=== PATIENT | male | born 1950 | race Caucasian/White ===

== ENCOUNTER 2018-07-17 12:49 | Day surgery (SDC) | payer MEDICARE, SELFPAY ==
--- NOTE | 2018-07-17 | PATH_ITS ---
[facility] Accession Number: [id number] . 01 Material submitted: . PART A: ASCENDING COLON POLYP PART B: RECTAL POLYP . 02 Diagnosis: A. Ascending Colon Polyps: Tubular adenoma x2. Additional step sections examined. . B. Rectal Polyp: Tubular adenoma. MRV/07/22/2018 . 02 Electronically signed: . Adolfo Stuart MD, PhD, Pathologist NPI- [id number] . 01 Gross description: . Received two formalin-filled containers both labeled with the patient's name. . A. In a container labeled ascending colon polyps are two 0.3 cm portions of tissue. Entirely submitted in cassette A. B. In a container labeled rectal polyp, the specimen consists of a 0.2 cm portion of tissue. Entirely submitted in cassette B. ([facility]:[id number]) /[facility] . 02 Pathologist provided ICD-10: D12.2, D12.8 . 02 CPT . 612189, 530254 Specimen Comment: A duplicate report has been generated due to demographic updates. Performed at: 01 [facility] [address] [place] [address], [place], [place] [id number] MD Joseph Flores MD Phone: [phone] Performed at: [address] [facility] [address] [place], [place] [id number] MD Peter Cortez MD Phone: [phone]
[2018-07-17 13:20] VITALS: BP 133/72; PULSE 66; RESP 15; TEMP 36.5; O2SAT 93; BMI 35.8
[2018-07-17] MEDS: SODIUM CHLORIDE 0.9% 1,000 ML 70 ML IV (13:27)
--- NOTE | 2018-07-17 13:43 | PM.HP.1 ---
History of Present Illness Date Patient Seen: 07/17/18 Chief complaint: [id number] Narrative: 68-year-old male who is here for polyp surveillance. He had a prior colonoscopy done around 8 years ago and was told he had polyps and surveillance interval was 5-10 years. I do not have a copy of that colonoscopy report. Patient otherwise has no active GI symptoms and no alarm symptoms. Patient History Family & Social History Social History: household members spouse Tobacco & Substance use: Smoking Status Never smoker Meds Home Medications Medication Instructions Recorded Confirmed Type simvastatin 40 mg PO HS #90 tab 01/31/18 07/17/18 Rx lisinopril-hydrochlorothiazide 1 tab PO QDAY #90 tab 05/20/18 07/17/18 Rx loratadine 10 mg capsule 10 mg PO DAILY PRN 06/27/18 07/17/18 History Allergies Allergy/AdvReac Type Severity Reaction Status Date / Time No Known Drug Allergies Allergy Verified 07/17/18 13:17 Review of Systems Review of Systems All systems reviewed & are unremarkable except as noted in HPI and below Exam Vital Signs (past 8 hours): - 07/17/18 13:20 Temperature 97.7 F Pulse Rate 66 Respiratory Rate 15 Blood Pressure 133/72 Pulse Oximetry 93 Oxygen Delivery Method Room Air Narrative Exam Narrative: General: Patient is obese, not in apparent distress Cardiovascular: Regular rate and rhythm, no murmurs, rubs, or gallops; no evidence of edema; no palpable abdominal aortic aneurysm Gastrointestinal: Normoactive bowel sounds, soft, nontender, nondistended, no rebound tenderness, no hepatosplenomegaly, no evidence of hernia Assessment & Plan Plan: Assessment/Plan Narrative: 68-year-old male who is here for colon polyp surveillance. Prior colonoscopy results not available to me but told he had a surveillance interval of 5-10 years. No family history of colon cancer. No active GI symptoms Regarding the procedure(s), the risks and potential complications, benefits, and alternatives (including not doing the procedure) were discussed with the patient. The risks include but are not limited to bleeding, infection, perforation which may require surgical intervention, missed lesions, and adverse reactions to sedative medicines. After a question and answer period, the patient agreed to proceed with the procedure(s) and gives informed consent.
--- NOTE | 2018-07-17 14:09 | PM.OP.ENDO ---
Operative Date/Time/Diagnoses Date of procedure: 07/17/18 Procedure Notes Procedure in detail: Surgeon: Jason Roberts MD Procedure: Colonoscopy with polypectomy Preoperative diagnosis: Colon polyp surveillance; last colonoscopy 8 years ago Postoperative diagnosis: 3 colon polyps status post polypectomy, sigmoid diverticulosis, grade 2 internal hemorrhoids Medications: Conscious sedation using 4 mg IV of Midazolam and 100 mcg IV of Fentanyl Preanesthesia Assessment An H and P was performed/updated and the Px?s ASA class is 2. The procedure was discussed in detail with the patient. The potential risks and complications including infection, bleeding, missed lesions, perforation, need for surgery in case of perforation, prolonged hospital stay, and were explained. A brief question and answer period was allotted and once all questions were answered, informed consent was obtained. The patient was brought back to the procedure room and placed on standard monitoring. The patient?s vital signs were monitored continuously throughout the entire procedure. Prior to starting, a timeout was performed to confirm the patient?s identity, allergies, medications, and procedure. Procedure in detail The patient was placed in left lateral decubitus position and once adequate sedation was obtained a SUHA was performed. The digital rectal examination did not reveal any palpable lesions. The tip of the colonoscope was placed in the anal canal and advanced without difficulty all the way to the cecum which was identified by the appendiceal orifice and the ileocecal valve. The terminal ileum was intubated to a distance of 5 cm from the ileocecal valve. The mucosa appeared normal. The colonoscope was then brought back to the cecum and careful examination of all smith of the colon was performed with irrigation of any residual stool. In the ascending colon there was note of 2 polyps measuring 2-3 mm. These were removed by means of cold Jumbo biopsy forceps. Resection and retrieval were complete with minimal bleeding There was note of multiple medium-size diverticula in the sigmoid colon In the rectum there was note of a 3 mm semi pedunculated polyp. This was removed by me with cold Jumbo biopsy forceps. Resection and retrieval were complete with minimal bleeding. Retroflexion was performed in the rectum which revealed grade 2 internal hemorrhoids. The patient tolerated the procedure well and will be brought back to the recovery area to be discharged once criteria are met. The prep was judged to be good/excellent and adequate to identify polyps less than 5 mm. The withdrawal time was 8.5 min. The total physician intraservice time was 17 min. Complications There were no complications and estimated blood loss was minimal. Recommendations: Resume previous diet Continue outPx medications Follow up pathology results Repeat colonoscopy in 3 or 5 years depending on pathology results An emergency contact number was given to the patient for any complications related to the procedure
[2018-07-17] MEDS: fentaNYL 250 MCG/5 ML INJ IV (14:31)
[2018-07-17] MEDS: MIDAZOLAM 5 MG/5 ML VIAL IV (14:32)
--- NOTE | 2018-07-17 14:33 | PM.DS.1 ---
History of Present Illness Chief complaint: [id number] Narrative: 68-year-old male who is here for polyp surveillance. He had a prior colonoscopy done around 8 years ago and was told he had polyps and surveillance interval was 5-10 years. I do not have a copy of that colonoscopy report. Patient otherwise has no active GI symptoms and no alarm symptoms. Discharge Providers Primary care physician: Thanh Ya MD Discharge provider: Jason Roberts MD Exam Vital Signs (past 8 hours): - 07/17/18 13:20 Temperature 97.7 F Pulse Rate 66 Respiratory Rate 15 Blood Pressure 133/72 Pulse Oximetry 93 Oxygen Delivery Method Room Air Narrative Exam Narrative: General: Patient is obese, not in apparent distress Cardiovascular: Regular rate and rhythm, no murmurs, rubs, or gallops; no evidence of edema; no palpable abdominal aortic aneurysm Gastrointestinal: Normoactive bowel sounds, soft, nontender, nondistended, no rebound tenderness, no hepatosplenomegaly, no evidence of hernia Discharge Plan Discharge Plan Patient Disposition: Home Discharge Med Rec/Prescriptions Prescriptions: Continue loratadine [Claritin Liqui-Gel] 10 mg capsule 10 mg PO DAILY PRN (Reason: Allergic Symptoms) RF: 0 simvastatin 40 MG tablet 40 mg PO HS Qty: 90 RF: 3 lisinopril-hydrochlorothiazide 10-12.5 mg tablet 1 tab PO QDAY Qty: 90 RF: 1 Discharge Orders: Discharge (Order); Ordered 07/17/18 Ordered By: Jason Roberts Provider Discharge Instructions Diet: Diet as Tolerated Visit Report/Discharge Packet Stand Alone Forms: Surgery Discharge Discharge Data Primary Care Provider: Thanh Ya Attending Provider: Jason Roberts
[2018-07-17 14:43] VITALS: BP 105/69; PULSE 58; RESP 16; TEMP 36.2; O2SAT 96
== END 2018-07-17 15:01 | disposition home or self-care (01) ==
PROVIDERS: PCP Family Medicine; Visit Provider Internal Medicine Gastroenterology
PROC: 0DJD8ZZ Inspection of Lower Intestinal Tract, Via Natural or Artificial Opening Endoscopic (ICD-10-PCS; CPT 45378; principal; 2018-07-17 14:00)
DX: Z86.010 Personal history of colon polyps (principal); K57.30 Diverticulosis of large intestine without perforation or abscess without bleeding; K64.1 Second degree hemorrhoids; D12.2 Benign neoplasm of ascending colon; D12.8 Benign neoplasm of rectum
CPT/HCPCS: 45380; 88305; J2250; J3010

== ENCOUNTER → 2019-06-09 10:19 | Outpatient (CLI) | payer MEDICARE, SELFPAY ==
[2019-06-09 11:08] LABS: Alanine Aminotransferase 45 IU/L (21-72); Albumin 4.2 g/dL (3.5-5.0); Albumin Globulin Ratio 1.4 (1.0-2.8); Alkaline Phosphatase 65 U/L (38-126); Aspartate Aminotransferase 25 IU/L (17-59); BUN Creatinine Ratio 22.5 (6-22); Blood Urea Nitrogen 18 mg/dL (9-20); Calcium 9.8 mg/dL (8.4-10.2); Carbon Dioxide 26 mmol/L (22-32); Chloride 103 mmol/L (98-107); Cholesterol 142 mg/dL (140-199); Estimated Glomerular Filt Rate > 60.0 mL/min (>60); Glucose 192 mg/dL (80-110); HDL Cholesterol 34 mg/dL (40-60); HEMOLYSIS < 15 (0-50); LDL Cholesterol Calculated 78 mg/dL (<100); Potassium 4.5 mmol/L (3.4-5.1); Sodium 140 mmol/L (137-145); Total Protein 7.2 g/dL (6.3-8.2); Triglycerides 150 mg/dL (35-150)
[2019-06-09 11:12] LABS: Hemoglobin A1C% w Est Avg Glu 9.5 % (4.0-6.0)
[2019-06-09 11:23] LABS: Vitamin D 25 Hydroxy (D3) 28.7 ng/mL (30.0-100.0)
== END ==
PROVIDERS: PCP Student in an Organized Health Care Education/Training Program; Visit Provider Student in an Organized Health Care Education/Training Program
DX: E11.9 Type 2 diabetes mellitus without complications (principal); E55.9 Vitamin D deficiency, unspecified; E78.00 Pure hypercholesterolemia, unspecified; Z79.899 Other long term (current) drug therapy; Z12.5 Encounter for screening for malignant neoplasm of prostate; I10 Essential (primary) hypertension; M19.011 Primary osteoarthritis, right shoulder
CPT/HCPCS: 36415; 80053; 80061; 82306; 83036; G0103

== ENCOUNTER → 2019-06-17 14:13 | Outpatient (CLI) | payer MEDICARE, SELFPAY ==
[2019-06-17 15:11] LABS: Creatinine Urine Random 184.5 mg/dL
[2019-06-17 15:15] LABS: Microalbumi Creatinin Ratio Ur 4.8 ug/mg CR (<30); Microalbumin Urine Random 0.9 mg/dL (0-1.6)
== END ==
PROVIDERS: PCP Student in an Organized Health Care Education/Training Program; Visit Provider Student in an Organized Health Care Education/Training Program
DX: E11.9 Type 2 diabetes mellitus without complications (principal)
CPT/HCPCS: 82043; 82570

== ENCOUNTER → 2019-09-08 06:58 | Outpatient (CLI) | payer MEDICARE, SELFPAY ==
[2019-09-08 07:54] LABS: Hemoglobin A1C% w Est Avg Glu 6.1 % (4.0-6.0)
== END ==
PROVIDERS: PCP Student in an Organized Health Care Education/Training Program; Visit Provider Student in an Organized Health Care Education/Training Program
DX: E11.9 Type 2 diabetes mellitus without complications (principal)
CPT/HCPCS: 36415; 83036

== ENCOUNTER → 2019-12-29 08:42 | Outpatient (CLI) | payer MEDICARE, SELFPAY ==
[2019-12-29 09:49] LABS: Hemoglobin A1C% w Est Avg Glu 5.7 % (4.0-6.0)
== END ==
PROVIDERS: PCP Student in an Organized Health Care Education/Training Program; Referring Provider Student in an Organized Health Care Education/Training Program; Visit Provider Student in an Organized Health Care Education/Training Program
DX: E11.9 Type 2 diabetes mellitus without complications (principal)
CPT/HCPCS: 36415; 83036

== ENCOUNTER → 2020-04-13 10:15 | Outpatient (CLI) | payer MEDICARE, SELFPAY ==
--- NOTE | 2020-04-13 10:17 | DI.US.S_ITS ---
PROCEDURE: US SCROTUM INDICATIONS: RIGHT SCROTAL/INGUINAL PAIN TECHNIQUE: Real-time scanning was performed of the scrotum and testicles, with image documentation. Color and pulse Doppler interrogation was performed of both testicles. COMPARISON: None. FINDINGS: Right: Testicle is normal in size at 3.9 x 2.2 x 3.8 cm, and homogenous in echotexture. Microcalcifications present. Epididymis is normal in overall size and morphology. Subcentimeter epididymal cysts. Moderate hydrocele. No varicoceles. Overlying scrotal skin is normal in thickness. No inguinal hernia identified. Left: Testicle is normal in size at 3.8 x 2.3 x 3.9 cm, and homogeneous in echotexture. Microcalcifications present. Epididymis is normal in overall size and morphology. No hydrocele or varicoceles. Overlying scrotal skin is normal in thickness. Doppler: Color and pulse Doppler demonstrate normal and symmetric arterial flow in both testicles. IMPRESSION: 1. Multiple bilateral microcalcifications seen otherwise the testicles are normal. If there is no history of underlying malignancy or predisposing factors which would increase the patient's risk for development of neoplasm, recommend patient education on self-examination; otherwise no followup ultrasound is necessary. 2. Moderate right hydrocele. 3. Subcentimeter right epididymal cysts. Dictated by: Gio BADILLO Interpreted: Sonido Negrete MD on 04/13/2020 at 12:16 Approved by: Sonido Negrete M.D. on 04/13/2020 at 13:08
== END ==
PROVIDERS: PCP Student in an Organized Health Care Education/Training Program; Referring Provider Student in an Organized Health Care Education/Training Program; Visit Provider Student in an Organized Health Care Education/Training Program
DX: N50.82 Scrotal pain (principal); N50.3 Cyst of epididymis
CPT/HCPCS: 76870

== ENCOUNTER → 2020-05-03 09:32 | Outpatient (CLI) | payer MEDICARE, SELFPAY ==
--- NOTE | 2020-05-03 09:33 | DI.CT.S_ITS ---
PROCEDURE: CT ABDOMEN PELVIS WO CON INDICATIONS: pain r groin r/o hernia recurrence (had vasectomy RIH repair TECHNIQUE: After the administration of oral contrast, 5 mm thick sections acquired from the diaphragms to the symphysis. 5 mm coronal and sagittal reformats were performed. For radiation dose reduction, the following was used: automated exposure control, adjustment of mA and/or kV according to patient size. COMPARISON: [facility], , SCROTUM, 04/13/2020, 10:33. FINDINGS: Image quality: Excellent. ABDOMEN: Lung bases: Lung bases are clear. Heart size is normal. Solid organs: Liver is normal in size. Gallbladder appears normal . Pancreas is normal in size. Spleen is normal in size. No adrenal nodules. Both kidneys are normal in size, without hydronephrosis or nephrolithiasis. Peritoneum and bowel: Bowel loops demonstrate normal wall thickness and caliber. No free fluid or air. Nodes and vessels: No retroperitoneal or mesenteric adenopathy by size criteria. Aorta and inferior vena cava are normal in size. Miscellaneous: No ventral hernias. PELVIS: Genitourinary: Bladder wall thickness is normal. Miscellaneous: No inguinal hernias or adenopathy. A normal appendix is seen at the right lower quadrant without adjacent inflammation. A single punctate calcification is present in that area, separate from the appendix. More inferiorly at the right inguinal canal small bowel extends to slightly anterior to the upper margin of the inguinal canal, and then fat prominence is present more inferiorly within the upper 3rd of the inguinal canal. A combination of omental and small-bowel herniation into this area appears to have occurred. Bones: No suspicious bony lesions. No vertebral body compression fractures. IMPRESSION: A urinary tract stone is not seen. A normal appendix is found. Note is made of a slight degree of herniation of small bowel into the upper margin of the right inguinal canal and there also is prominence of fat within the upper 3rd of the inguinal canal on the right to the degree that some portion of the omentum appears likely to have herniated into the inguinal canal also. There is no CT evidence of incarceration or strangulation associated. Dictated by: Bhanu Streeter M.D. on 05/03/2020 at 12:53 Approved by: Bhanu Streeter M.D. on 05/03/2020 at 12:58
== END ==
PROVIDERS: PCP Student in an Organized Health Care Education/Training Program; Referring Provider Specialist; Visit Provider Specialist
DX: K40.90 Unilateral inguinal hernia, without obstruction or gangrene, not specified as recurrent (principal); R10.31 Right lower quadrant pain; G89.29 Other chronic pain; Z98.890 Other specified postprocedural states; Z87.19 Personal history of other diseases of the digestive system
CPT/HCPCS: 74176

== ENCOUNTER → 2020-07-08 10:48 | Outpatient (CLI) | payer MEDICARE, SELFPAY ==
[2020-07-08 12:00] LABS: Hemoglobin A1C% w Est Avg Glu 5.9 % (4.0-6.0)
== END ==
PROVIDERS: PCP Student in an Organized Health Care Education/Training Program; Referring Provider Student in an Organized Health Care Education/Training Program; Visit Provider Student in an Organized Health Care Education/Training Program
DX: E11.9 Type 2 diabetes mellitus without complications (principal)
CPT/HCPCS: 36415; 83036

== ENCOUNTER → 2020-11-16 09:49 | Outpatient (CLI) | payer MEDICARE, SELFPAY ==
[2020-11-16] MEDS: COVID-19 VACC #1, MRNA(MOD) 100 MCG/0.5 ML VIAL IM (09:54)
== END ==
PROVIDERS: PCP Student in an Organized Health Care Education/Training Program; Visit Provider Internal Medicine
DX: Z23 Encounter for immunization (principal)
CPT/HCPCS: 0011A; 91301

== ENCOUNTER → 2020-12-14 09:56 | Outpatient (CLI) | payer MEDICARE, SELFPAY ==
[2020-12-14] MEDS: COVID-19 VACC #2, MRNA(MOD) 100 MCG/0.5 ML VIAL IM (10:12)
== END ==
PROVIDERS: PCP Student in an Organized Health Care Education/Training Program; Visit Provider Internal Medicine
DX: Z23 Encounter for immunization (principal)
CPT/HCPCS: 0012A; 91301

== ENCOUNTER → 2021-10-11 07:10 | Outpatient (CLI) | payer MEDICARE, SELFPAY ==
[2021-10-11 08:28] LABS: Hemoglobin A1C% w Est Avg Glu 5.9 % (4.0-6.0)
[2021-10-11 08:51] LABS: Creatinine Urine Random 261.6 mg/dL
[2021-10-11 08:56] LABS: Microalbumi Creatinin Ratio Ur 9.1 ug/mg CR (<30); Microalbumin Urine Random 2.4 mg/dL (0-1.6)
[2021-10-11 09:04] LABS: BUN Creatinine Ratio 14.4 (6-22); Blood Urea Nitrogen 13 mg/dL (9-20); Calcium 9.9 mg/dL (8.4-10.2); Carbon Dioxide 27 mmol/L (22-32); Chloride 107 mmol/L (98-107); Cholesterol 133 mg/dL (140-199); Estimated Glomerular Filt Rate > 60.0 mL/min (>60); Glucose 99 mg/dL (80-110); HDL Cholesterol 45 mg/dL (40-60); HEMOLYSIS < 15 (0-50); LDL Cholesterol Calculated 72 mg/dL (<100); Potassium 4.3 mmol/L (3.4-5.1); Sodium 141 mmol/L (137-145); Triglycerides 78 mg/dL (35-150)
== END ==
PROVIDERS: PCP Student in an Organized Health Care Education/Training Program; Referring Provider Student in an Organized Health Care Education/Training Program; Visit Provider Student in an Organized Health Care Education/Training Program
DX: E11.69 Type 2 diabetes mellitus with other specified complication (principal); E78.5 Hyperlipidemia, unspecified; E55.9 Vitamin D deficiency, unspecified; I10 Essential (primary) hypertension; E11.9 Type 2 diabetes mellitus without complications
CPT/HCPCS: 36415; 80048; 80061; 82043; 82306; 82570; 83036

== ENCOUNTER → 2022-12-13 08:39 | Outpatient (CLI) | payer MEDICARE, SELFPAY ==
[2022-12-13 09:25] LABS: Hemoglobin A1C% w Est Avg Glu 6.3 % (4.0-6.0)
[2022-12-13 09:40] LABS: BUN Creatinine Ratio 16.3 (6-22); Blood Urea Nitrogen 14 mg/dL (9-20); Calcium 9.2 mg/dL (8.4-10.2); Carbon Dioxide 27 mmol/L (22-32); Chloride 103 mmol/L (98-107); Cholesterol 153 mg/dL (140-199); Estimated Glomerular Filt Rate > 60 mL/min (>60); Glucose 107 mg/dL (80-110); HDL Cholesterol 44 mg/dL (40-60); HEMOLYSIS < 15 (0-50); LDL Cholesterol Calculated 90 mg/dL (<100); Potassium 4.3 mmol/L (3.4-5.1); Sodium 141 mmol/L (137-145); Triglycerides 96 mg/dL (35-150)
[2022-12-13 16:02] LABS: Microalbumin Urine Random 1.1 mg/dL (0-1.6)
[2022-12-13 16:22] LABS: Creatinine Urine Random 149.8 mg/dL; Microalbumi Creatinin Ratio Ur 7.3 ug/mg CR (<30)
[2022-12-14 17:08] LABS: Hep C Virus Ab w/Reflex Quant NEGATIVE s/c (NEGATIVE)
== END ==
PROVIDERS: PCP Student in an Organized Health Care Education/Training Program; Referring Provider Student in an Organized Health Care Education/Training Program; Visit Provider Student in an Organized Health Care Education/Training Program
DX: E11.9 Type 2 diabetes mellitus without complications (principal); E11.69 Type 2 diabetes mellitus with other specified complication; I10 Essential (primary) hypertension; E78.5 Hyperlipidemia, unspecified; Z11.59 Encounter for screening for other viral diseases
CPT/HCPCS: 36415; 80048; 80061; 82043; 82570; 83036; 86803

== ENCOUNTER → 2023-06-19 10:24 | Outpatient (CLI) | payer MEDICARE, SELFPAY ==
[2023-06-19 12:51] LABS: Hemoglobin A1C% w Est Avg Glu 5.9 % (4.0-6.0)
[2023-06-19 13:11] LABS: Aspartate Aminotransferase 24 IU/L (17-59); BUN Creatinine Ratio 15.6 (6-22); Blood Urea Nitrogen 12 mg/dL (9-20); Calcium 9.2 mg/dL (8.4-10.2); Carbon Dioxide 27 mmol/L (22-32); Chloride 105 mmol/L (98-107); Estimated Glomerular Filt Rate > 60 mL/min (>60); Glucose 100 mg/dL (80-110); HEMOLYSIS < 15 (0-50); Potassium 4.6 mmol/L (3.4-5.1); Sodium 139 mmol/L (137-145)
[2023-06-19 13:33] LABS: Prostate Specific Antigen 2.29 ng/mL (0.10-4.00)
== END ==
PROVIDERS: PCP Internal Medicine; Referring Provider Internal Medicine; Visit Provider Internal Medicine
DX: E11.69 Type 2 diabetes mellitus with other specified complication (principal); N40.1 Benign prostatic hyperplasia with lower urinary tract symptoms; E78.5 Hyperlipidemia, unspecified; I10 Essential (primary) hypertension; N13.8 Other obstructive and reflux uropathy
CPT/HCPCS: 36415; 80048; 83036; 84153; 84450

== ENCOUNTER 2023-07-05 06:43 | Day surgery (SDC) | payer MEDICARE, SELFPAY ==
[2023-07-05] MEDS: LACTATED RINGERS 1,000 ML 42 ML IV (07:03)
[2023-07-05 07:09] VITALS: BP 169/69; PULSE 50; RESP 14; TEMP 36.3; O2SAT 96; BMI 29.4
--- NOTE | 2023-07-05 07:47 | PM.HP.1 ---
History of Present Illness History of Present Illness Date Patient Seen: 07/05/23 Time Patient Seen: 07:56 Chief complaint: Colonoscopy Narrative: Sj is a 73-year-old man who had his last colonoscopy about 5 years ago and 3 tubular adenomas were removed. He has not had any other polyps removed on prior colonoscopies. He has no known family history of colon cancer. 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 household members: spouse Smoking Status: Never smoker Meds Home Medications and Allergies Home Medications Medication Instructions Recorded Confirmed Type aspirin 81 mg tablet,delayed 81 mg PO DAILY 06/17/19 07/05/23 History release lisinopril 20 mg tablet 20 mg PO DAILY #90 tabs 01/09/23 07/05/23 Rx simvastatin 40 mg tablet 40 mg PO HS #90 tabs 01/09/23 07/05/23 Rx Allergies Allergy/AdvReac Type Severity Reaction Status Date / Time No Known Drug Allergies Allergy Verified 07/05/23 07:06 Exam Vital Signs (past 8 hours): - 07/05/23 07:09 Temperature 97.4 F L Pulse Rate 50 L Respiratory Rate 14 Blood Pressure 169/69 H Pulse Oximetry 96 Oxygen Delivery Method Room Air Oxygen Delivery Method Room Air Const General: healthy appearing Assessment & Plan Assessment and plan (1) History of colonic polyps: Status: Acute Plan We reviewed the risks and benefits of colonoscopy due to history of colon polyps and he would like to proceed.
[2023-07-05 08:24] VITALS: BP 115/64; PULSE 57; RESP 21; TEMP 36.8; O2SAT 97
--- NOTE | 2023-07-05 08:26 | PM.OP.COLON ---
Operative Date/Time/Diagnoses Date of procedure: 07/05/23 Time of procedure: 08:27 Pre-op diagnosis: History of colon polyps Post-op diagnosis: same Procedure & Clinicians Study performed: Colonoscopy Same procedure as scheduled: Yes Surgeon: Manuel Martell Procedure Notes Procedure in detail: Surgeon: Manuel Martell MD Anesthesia: Kamila Cuevas CRNA Procedure: The patient was brought to the endoscopy suite, placed in left lateral decubitus position. The patient was connected to monitoring devices. A time-out was performed. Sedation was administered. Once the patient was adequately sedated, a digital rectal exam was performed and was normal. The scope was then inserted and advanced to the cecum where the appendiceal orifice was identified and photographed. The scope was then slowly withdrawn over greater than 6 minutes. The mucosa was thoroughly inspected. No polyps were seen. A few scattered diverticula were seen in the sigmoid colon. The scope was retroflexed in the rectum. There were internal hemorrhoids but no other abnormalities were seen The scope was straightened and removed. The patient was awakened and brought to recovery. Scope withdrawal time: 8 minutes Sedation time: 15 minutes EBL: 0 Findings: Few scattered diverticula in the sigmoid colon and mild internal hemorrhoids Post-procedure Disposition: PACU
[2023-07-05 08:27] VITALS: BP 121/71; PULSE 44; RESP 11; O2SAT 98
[2023-07-05 08:35] VITALS: BP 118/62; PULSE 47; RESP 13; TEMP 36.8; O2SAT 98
== END 2023-07-05 08:45 | disposition home or self-care (01) ==
PROVIDERS: PCP Internal Medicine; Referring Provider Surgery; Visit Provider Surgery
PROC: 0DJD8ZZ Inspection of Lower Intestinal Tract, Via Natural or Artificial Opening Endoscopic (ICD-10-PCS; CPT 45378; principal; 2023-07-05 07:45)
DX: Z12.11 Encounter for screening for malignant neoplasm of colon (principal); K57.30 Diverticulosis of large intestine without perforation or abscess without bleeding; K64.8 Other hemorrhoids
CPT/HCPCS: G0105; J2704

== ENCOUNTER → 2024-05-15 16:47 | Outpatient (CLI) | payer MEDICARE, SELFPAY ==
[2024-05-15 17:22] LABS: Aspartate Aminotransferase 27 IU/L (17-59); Blood Urea Nitrogen 15 mg/dL (9-20); Calcium 9.2 mg/dL (8.4-10.2); Carbon Dioxide 24 mmol/L (22-32); Chloride 108 mmol/L (98-107); Cholesterol 153 mg/dL (140-199); Estimated Glomerular Filt Rate > 60 mL/min (>60); Glucose 99 mg/dL (80-110); HDL Cholesterol 48 mg/dL (40-60); HEMOLYSIS < 15 (0-50); LDL Cholesterol Calculated 84 mg/dL (<100); Potassium 4.3 mmol/L (3.4-5.1); Sodium 140 mmol/L (137-145); Triglycerides 105 mg/dL (35-150)
[2024-05-15 17:24] LABS: Hemoglobin A1C% w Est Avg Glu 6.3 % (4.0-6.0)
[2024-05-15 17:39] LABS: Creatinine Urine Random 164.02 mg/dL
== END ==
PROVIDERS: PCP Internal Medicine; Referring Provider Internal Medicine; Visit Provider Internal Medicine
DX: E11.69 Type 2 diabetes mellitus with other specified complication (principal); E78.5 Hyperlipidemia, unspecified
CPT/HCPCS: 36415; 80048; 80061; 82043; 82570; 83036; 84450

== ENCOUNTER 2024-06-09 13:36 | Emergency (ER) | payer MEDICARE, SELFPAY ==
[2024-06-09 13:39] VITALS: BP 169/77; PULSE 66; RESP 16; TEMP 36.9; O2SAT 98; BMI 31.4
[2024-06-09 14:17] LABS: Strep Grp A by PCR Rapid Negative (Negative)
[2024-06-09 15:27] LABS: Influenza A - CEPHEID Flu A NEGATIVE (NEGATIVE); Influenza B - CEPHEID Flu B NEGATIVE (NEGATIVE); Respiratory Syncytial Virus Negative (Negative)
[2024-06-09 15:30] LABS: COVID-19 CEPHEID 4-PLEX PCR Negative (Negative)
[2024-06-09 19:51] VITALS: BP 170/77; PULSE 63; RESP 16; TEMP 37.2; O2SAT 97
[2024-06-09] MEDS: dexAMETHasone 4 MG TABLET 12 MG PO (20:38)
--- NOTE | 2024-06-09 23:59 | ED.FEVER ---
HPI - Fever General Chief Complaint: Fever Stated Complaint: T-3 Fever, diff swallowing, jaw pain Time Seen by Provider: 06/09/24 20:06 Source: patient Mode of arrival: Ambulatory History of Present Illness HPI Narrative: 74-year-old man with a history of hypertension presenting with a sore throat in 3 days of fever. Sore throat is primarily along the right side and notices swelling of his uvula. Has not had a cough nausea or vomiting. No shortness a breath. History of a fractured tooth but that is not hurting at present Related Data Home Medications Medication Instructions Recorded Confirmed aspirin 81 mg tablet,delayed 81 mg PO DAILY 06/17/19 05/15/24 release Previous Rx's Medication Instructions Recorded simvastatin 40 mg tablet 40 mg PO HS #90 tabs 01/28/24 lisinopril 20 mg tablet 20 mg PO DAILY #90 tabs 01/29/24 Allergies Allergy/AdvReac Type Severity Reaction Status Date / Time No Known Drug Allergies Allergy Verified 05/15/24 15:59 Patient History Medical History Overweight BPH w urinary obs/LUTS History of colonic polyps Primary osteoarthritis involving multiple joints Essential hypertension DM type 2 with diabetic dyslipidemia Hyperlipidemia associated with type 2 diabetes mellitus History of dermatographic urticaria (~1979) Allergic rhinitis (~1959) Measles 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 There is some erythema in the back of the throat ) Neck Other: Mild right-sided cervical adenopathy supplement Resp Other: Voice is normal, handling his secretions without difficulty Cardio Other: Normal heart rate Skin Other: Warm and dry Course Orders Ordered: Discontinued Medications Dexamethasone (Dexamethasone 1 Mg Tablet) 14 mg 0.15 mg/kg (14 mg) PO NOW ONE Stop: 06/09/24 20:19 Last Admin: 06/09/24 20:45 Dose: Not Given Documented By: BEHZAD Dexamethasone (Dexamethasone 4 Mg Tablet) 12 mg PO NOW ONE Stop: 06/09/24 20:35 Last Admin: 06/09/24 20:38 Dose: 12 mg Documented By: BEHZAD Vital Signs Vital signs: Vital Signs - 8 hr 06/09/24 19:51 Temperature 99.0 F Pulse Rate 63 Respiratory Rate 16 Blood Pressure 170/77 H Pulse Oximetry 97 Oxygen Delivery Method Room Air MDM - Fever Lab Data Lab results narrative: COVID and influenza are negative strep negative Labs: Lab Results 06/09/24 Range/Units 13:50 SARS-CoV-2 (PCR) Negative (Negative) Influenza A (RT-PCR) Flu a negative (NEGATIVE) Influenza B (RT-PCR) Flu b negative (NEGATIVE) RSV (PCR) Negative (Negative) Group A Strep (PCR) Negative (Negative) [facility] Narrative Medical decision making narrative: 74-year-old man with a fever and pharyngitis. Differential diagnosis includes peritonsillar abscess or deep space neck infection, sharp pharyngitis viral pharyngitis. Exam does not suggest deep space neck infection or peritonsillar abscess. Tested negative for strep. Thirty him on a single dose of dexamethasone with continued ibuprofen for inflammation. Discharge Plan Departure Patient Disposition: Home Clinical Impression: Acute viral pharyngitis Activity Restrictions/Additional Instructions: Emergency department evaluation is reassuring. It appears that you have a viral pharyngitis causing your sore throat and swollen uvula. I have given a dose of dexamethasone, a steroid that should help speed resolution of symptoms. In addition, you can use ibuprofen 600 mg 3 times a day and you can also add Tylenol usual [id number] doses. If you are having increasing pain fevers more trouble swallowing difficulty breathing or other acute symptoms recheck in the emergency department. Follow up with your primary care provider if symptoms do not resolve over the next 3-4 days Prescriptions: No Action simvastatin 40 mg tablet 40 mg PO HS Qty: 90 3RF Rx Instructions: send to [facility] lisinopril 20 mg tablet 20 mg PO DAILY Qty: 90 3RF Rx Instructions: send to [facility] aspirin 81 mg tablet,delayed release (DR/EC) 81 mg PO DAILY Referrals: Akash Zimmerman MD [Primary Care Provider] - Stand Alone Forms: Patient Portal/API
== END 2024-06-09 20:46 | disposition home or self-care (01) ==
PROVIDERS: Emergency Medicine; Emergency Provider Emergency Medicine; PCP Internal Medicine
DX: J02.9 Acute pharyngitis, unspecified (principal); Z11.52 Encounter for screening for COVID-19
CPT/HCPCS: 0241U; 87070; 87651; 99283

== ENCOUNTER 2024-06-11 12:35 | Emergency (ER) | payer MEDICARE, SELFPAY ==
[2024-06-11] VITALS (7 sets, daily range): BP systolic 173–209; BP diastolic 74–88; PULSE 58–77; RESP 18; TEMP 36.4; O2SAT 95–99; BMI 31.4
--- NOTE | 2024-06-11 12:54 | ED_ITS ---
HPI - URI/Sore Throat General Chief Complaint: Upper Respiratory Symptoms Stated Complaint: was seen sunday, trouble swallowing Time Seen by Provider: 06/11/24 12:53 Source: patient Mode of arrival: Ambulatory History of Present Illness HPI Narrative: Patient 74-year-old male with no significant past medical history comes into the ED from home for evaluation of persistent sore throat and feeling of dysphagia to the right side of his neck. Was seen here previously few days ago for the same, had improved symptoms after administration of NSAID and steroids, states that symptoms persisted therefore decided come into the ED for further evaluation treatment. Patient did have negative COVID flu strep at previous visit, he is speaking in full sentences protecting airway tolerating secretions. Related Data Home Medications Medication Instructions Recorded Confirmed aspirin 81 mg tablet,delayed 81 mg PO DAILY 06/17/19 05/15/24 release Previous Rx's Medication Instructions Recorded simvastatin 40 mg tablet 40 mg PO HS #90 tabs 01/28/24 lisinopril 20 mg tablet 20 mg PO DAILY #90 tabs 01/29/24 amoxicillin 875 mg-potassium 1 tab PO BID 14 days #28 tabs 06/11/24 clavulanate 125 mg tablet Allergies Allergy/AdvReac Type Severity Reaction Status Date / Time No Known Drug Allergies Allergy Verified 05/15/24 15:59 Review of Systems Review of Systems Narrative: HEENT: Denies headache, eye drainage, eye irritation, head trauma, voice change, positive sore throat Cardiovascular: Denies any chest pain, palpitations, shortness of breath, tachycardia Respiratory: Denies any shortness of breath, cough, wheeze, stridor GI/: Denies any abdominal pain, nausea, vomiting, diarrhea, bright red blood per rectum, melanotic stools, urinary frequency, urinary retention, dysuria, hematuria MSK: Denies any joint pain, muscle pains, swelling Skin: Denies any rashes, lesions, discoloration Neuro: Denies any headache, lightheadedness, dizziness, fainting, weakness Psych: Denies SI/HI Patient History Medical History Overweight BPH w urinary obs/LUTS History of colonic polyps Primary osteoarthritis involving multiple joints Essential hypertension DM type 2 with diabetic dyslipidemia Hyperlipidemia associated with type 2 diabetes mellitus History of dermatographic urticaria (~1979) Allergic rhinitis (~1959) Measles 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 household members: spouse Smoking Status: Never smoker Smoking Status: Never smoker alcohol intake frequency: holidays/special occasions only Substance Use Type: does not use Exam Narrative Exam Narrative: General: Cooperative, comfortable, well-developed, not in acute distress HEENT: Normocephalic, atraumatic, PERRLA, normal sclera, eyelids normal, patient is speaking full sentences protecting airway no voices no stridor no trismus mild erythema noted of the posterior oropharynx uvula midline Neck: Active full range of motion, atraumatic Chest: Normal to inspection, negative crepitus, no overlying erythema ecchymosis Respiratory: Normal respiratory effort, not in acute respiratory distress, clear to auscultation bilaterally negative cough, wheeze, tachypnea, rhonchi, rales Cardiology: Regular rate rhythm negative gallop, murmur, rubs GI/: Normal to inspection, soft, nonrigid, no tenderness to palpation, exam deferred MSK: Full range of active range of motion of all 4 extremities, atraumatic Skin: No rashes lesions noted Neuro: Alert awake oriented x3, moves all 4 extremities spontaneously, cranial nerves intact, able to answer all questions appropriately follows commands appropriately Psych: Cooperative, negative suicidal or homicidal ideations Initial Vital Signs Initial Vital Signs: Vital Signs Temperature 97.6 F 06/11/24 12:38 Pulse Rate 58 L 06/11/24 12:38 Respiratory Rate 18 06/11/24 12:38 Blood Pressure 196/88 H 06/11/24 12:38 Pulse Oximetry 99 06/11/24 12:38 Oxygen Delivery Method Room Air 06/11/24 12:38 Course Orders Ordered: ED Orders 06/11/24 13:00 CT soft tissue neck w con Stat 06/11/24 13:30 BMP [Basic Metabolic Panel] Stat CBC No Diff [Complete Blood Count NO DIFF] Stat Lactate (Lactic Acid) Stat MAG [Magnesium] Stat Monotest Stat Strep Grp A by PCR Rapid Stat 06/11/24 15:45 Blood Culture Stat Clindamycin Phosphate (Cleocin) 900 mg in 50 mls @ 50 mls/hr IV Q8H [facility] Last Admin: 06/11/24 15:47 Dose: 50 mls/hr Documented By: YENNI Discontinued Medications Dexamethasone (Dexamethasone 10 Mg/Ml Vial) 10 mg IV NOW ONE Stop: 06/11/24 13:01 Last Admin: 06/11/24 13:14 Dose: 10 mg Documented By: GE Dexamethasone (Dexamethasone 10 Mg/Ml Vial) 10 mg IV NOW ONE Stop: 06/11/24 16:06 Sodium Chloride (Normal Saline 0.9%) 1,000 mls @ 1,000 mls/hr IV BOLUS ONE Stop: 06/11/24 14:02 Last Infusion: 06/11/24 14:18 Dose: Infused Documented By: Admin: 06/11/24 13:13 Dose: 1,000 mls/hr Documented By: GE Ketorolac Tromethamine (Ketorolac 30 Mg/Ml Vial) 15 mg IV NOW ONE Stop: 06/11/24 13:01 Last Admin: 06/11/24 13:13 Dose: 15 mg Documented By: GE Vital Signs Vital signs: Vital Signs - 8 hr 06/11/24 12:38 06/11/24 15:30 06/11/24 15:31 Temperature 97.6 F Pulse Rate 58 L 73 Respiratory Rate 18 Blood Pressure 196/88 H 183/83 H Pulse Oximetry 99 97 Oxygen Delivery Method Room Air 06/11/24 15:31 Temperature Pulse Rate 72 Respiratory Rate Blood Pressure Pulse Oximetry 98 Oxygen Delivery Method MDM - URI/Sore Throat Lab Data 06/11/24 13:30 06/11/24 13:30 Labs: Lab Results 06/11/24 Range/Units 13:30 WBC 13.9 H (4.5-11.0) X10^3/uL RBC 4.75 (4.5-5.9) X10^6/uL Hgb 13.9 (13.5-17.5) g/dL Hct 41.2 (41-53) % MCV 86.7 (80-100) fL MCH 29.2 (26-34) PG MCHC 33.6 (30-36) % RDW 14.3 (11.6-14.8) % Plt Count 263 (150-400) X10^3/uL Sodium 137 (137-145) mmol/L Potassium 4.2 (3.4-5.1) mmol/L Chloride 102 (98-107) mmol/L Carbon Dioxide 27 (22-32) mmol/L BUN 17 (9-20) mg/dL Creatinine 1.01 (0.66-1.25) mg/dL Estimated GFR > 60 (>60) mL/min BUN/Creatinine Ratio 16.8 (6-22) Glucose 106 (80-110) mg/dL Lactate 1.4 (0.7-2.1) mmol/L Calcium 9.4 (8.4-10.2) mg/dL Magnesium 2.2 (1.6-2.3) mg/dL Monoscreen Negative (Negative) Group A Strep (PCR) Negative (Negative) MDM Narrative Medical decision making narrative: Patient is a 74-year-old male no significant past medical history comes into the ED for persistent swelling/sore throat. Was seen here previously few days ago was diagnosed with viral pharyngitis, CT scan now showing possible early abscess versus phlegmon, patient is speaking in full sentences protecting airway no voices no stridor protecting airway. Did have a discussion with ENT who states patient should be safe for discharge home with oral antibiotics and follow-up in clinic. He verbalized these findings with the patient give strict return precaution and agrees with discharge home with outpatient follow up. Discharge Plan Departure Patient Disposition: Home Clinical Impression: Abscess, peritonsillar Instructions: DI for Peritonsillar Abscess -- Adult Prescriptions: New amoxicillin-pot clavulanate 875-125 mg tablet 1 tab PO BID 14 Days Qty: 28 0RF No Action simvastatin 40 mg tablet 40 mg PO HS Qty: 90 3RF Rx Instructions: [facility] to [facility] lisinopril 20 mg tablet 20 mg PO DAILY Qty: 90 3RF Rx Instructions: send to [employer] aspirin 81 mg tablet,delayed release (DR/EC) 81 mg PO DAILY Referrals: Akash Zimmerman MD [Primary Care Provider] - Stand Alone Forms: Patient Portal/API
--- NOTE | 2024-06-11 13:00 | DI.CT.S_ITS ---
PROCEDURE: CT SOFT TISSUE NECK W CON INDICATIONS: Swelling, dysphagia right sided TECHNIQUE: After the administration of intravenous contrast, 3.0 mm axial sections acquired from the sella to the aortic arch. Additional oblique axial 3.0 mm sections acquired through the pharynx. 3 mm thick coronal and sagittal reformats were generated. For radiation dose reduction, the following was used: automated exposure control. COMPARISON: None. FINDINGS: Image quality: Excellent. Lymph nodes: No enlarged lymph nodes seen throughout the neck. Vessels: Visualized vasculature appears patent. Neck spaces: There is abnormal swelling seen involving the right peritonsillar region, and continuing more inferiorly within the pharynx. There is fluid seen within the right peritonsillar region that measures up to 16 x 11 mm in greatest axial dimension, with a craniocaudal extent of 6-7 cm. There is narrowing of the airway seen within the supraglottic region. Glands: The parotid and submandibular glands appear normal. Thyroid gland demonstrates a 12 mm right-sided nodule. By published criteria, no imaging follow-up is recommended. Miscellaneous: Visualized brain and orbits appear normal. Lung apices appear clear. Superficial soft tissues appear normal. Bones: No suspicious bony lesions. Visualized sinuses and mastoids appear unremarkable. At least moderate cervical spine degenerative change can be seen IMPRESSION: Abnormal soft tissue swelling, with fluid within the right peritonsillar region, continuing down into the pharynx. Phlegmon is suspected, although differential diagnosis includes early abscess. Urgent ENT consultation is recommended. Dictated by: Emmanuel Brice M.D. on 06/11/2024 at 13:49 Approved by: Emmanuel Brice M.D. on 06/11/2024 at 13:52
[2024-06-11] MEDS: SODIUM CHLORIDE 0.9% 1,000 ML 1000 ML IV (13:13)
[2024-06-11] MEDS: KETOROLAC 30 MG/ML VIAL 15 MG IV (13:13)
[2024-06-11] MEDS: DEXAMETHASONE 10 MG/ML VIAL IV ×2 (13:14→16:43)
[2024-06-11 13:44] LABS: Hematocrit 41.2 % (41-53); Hemoglobin 13.9 g/dL (13.5-17.5); Mean Corpuscular HGB Conc 33.6 % (30-36); Mean Corpuscular Hemoglobin 29.2 PG (26-34); Mean Corpuscular Volume 86.7 fL (80-100); Platelet Count 263 X10^3/uL (150-400); Red Blood Cell Count 4.75 X10^6/uL (4.5-5.9); Red Cell Distribution Width 14.3 % (11.6-14.8); White Blood Cell Count 13.9 X10^3/uL (4.5-11.0)
[2024-06-11 13:54] LABS: Strep Grp A by PCR Rapid Negative (Negative)
[2024-06-11 14:00] LABS: BUN Creatinine Ratio 16.8 (6-22); Blood Urea Nitrogen 17 mg/dL (9-20); Calcium 9.4 mg/dL (8.4-10.2); Carbon Dioxide 27 mmol/L (22-32); Chloride 102 mmol/L (98-107); Estimated Glomerular Filt Rate > 60 mL/min (>60); Glucose 106 mg/dL (80-110); HEMOLYSIS < 15 (0-50); Magnesium 2.2 mg/dL (1.6-2.3); Potassium 4.2 mmol/L (3.4-5.1); Sodium 137 mmol/L (137-145)
[2024-06-11 14:47] LABS: Monotest Negative (Negative)
[2024-06-11 15:20] LABS: Lactate (Lactic Acid) 1.4 mmol/L (0.7-2.1)
[2024-06-11] MEDS: CLINDAMYCIN 900 MG/50 ML PIGGYBACK 50 MG IV (15:47)
--- NOTE | 2024-06-11 16:58 | PC.NURSE ---
Call placed to [facility] in [place] for f/u visit. Appt made for 06/16/24 at 1320 pm in [place].
== END 2024-06-11 17:00 | disposition home or self-care (01) ==
PROVIDERS: Emergency Provider Student in an Organized Health Care Education/Training Program; PCP Internal Medicine
DX: J36 Peritonsillar abscess (principal); Z79.899 Other long term (current) drug therapy
CPT/HCPCS: 36415; 70491; 80048; 83605; 83735; 85027; 86318; 87040; 87651; 96361; 96365; 96375; 96376; 99284; J1100; J1885; Q9967

== ENCOUNTER → 2024-12-18 12:03 | Outpatient (CLI) | payer MEDICARE, SELFPAY ==
[2024-12-18 12:39] LABS: Hemoglobin A1C% w Est Avg Glu 5.9 % (4.0-6.0)
[2024-12-18 12:54] LABS: Aspartate Aminotransferase 27 IU/L (17-59); Blood Urea Nitrogen 16 mg/dL (9-20); Calcium 9.5 mg/dL (8.4-10.2); Carbon Dioxide 23 mmol/L (22-32); Chloride 107 mmol/L (98-107); Cholesterol 146 mg/dL (140-199); Estimated Glomerular Filt Rate > 60 mL/min (>60); Glucose 100 mg/dL (80-110); HDL Cholesterol 46 mg/dL (40-60); HEMOLYSIS < 15 (0-50); LDL Cholesterol Calculated 85 mg/dL (<100); Potassium 4.4 mmol/L (3.4-5.1); Sodium 138 mmol/L (137-145); Triglycerides 77 mg/dL (35-150)
== END ==
PROVIDERS: PCP Internal Medicine; Referring Provider Internal Medicine; Visit Provider Internal Medicine
DX: E11.69 Type 2 diabetes mellitus with other specified complication (principal); N40.1 Benign prostatic hyperplasia with lower urinary tract symptoms; N13.8 Other obstructive and reflux uropathy; E78.5 Hyperlipidemia, unspecified
CPT/HCPCS: 36415; 80048; 80061; 83036; 84153; 84450